=== PATIENT | female | born 2000 | race Caucasian/White ===

== ENCOUNTER 2024-11-06 13:31 | Inpatient (IN) | payer OTHER ==
[~2024-11-06 13:31] MED LIST: Bupivacaine 0.25% HCL 30 ML VIAL ONE
[2024-11-06 21:29] VITALS: BMI 24.9
[2024-11-06 22:22] LABS: Hemoglobin 9.8 g/dL (12.0-15.5); Mean Corpuscular HGB CONC 30.6 g/dL (32.0-36.0); Mean Corpuscular Hemoglobin 24.4 pg (27.0-33.0); Mean Corpuscular Volume 79.8 fL (81.6-98.3); Mean Platelet Volume 9.6 fL (7.4-10.4); Platelet Count 319 10x3/uL (150-450); Red Blood Cell (RBC) Count 4.01 10x6/uL (3.90-5.03); White Blood Cell (WBC) Count 12.33 10x3/uL (3.5-10.5)
[2024-11-06] MEDS ORDERED: fentaNYL 50 mcg/mL 1 mL Vial SLOW IVP PRN (22:30)
[2024-11-06] MEDS ORDERED: hydrALAZINE 20 MG/ML VIAL SLOW IVP PRN (22:30)
[2024-11-06] MEDS ORDERED: Lidocaine 1% (PF) 30 ML VIAL SC PRN (22:30)
[2024-11-06] MEDS ORDERED: Oxytocin 30 units/NS 500 ML 500 ML IV SCH ×2 (22:30)
[2024-11-06] MEDS ORDERED: Promethazine HCl 25 MG/ML VIAL IM PRN (22:30)
[2024-11-06] MEDS ORDERED: Acetaminophen 500 MG TAB PO PRN (22:30)
[2024-11-06 22:56] LABS: Syphilis Antibody Nonreactive (Nonreactive); Syphilis Antibody Index 0.06 S/CO (<1.00 Non-Reactive)
[2024-11-06 22:57] LABS: Hep B Surf Ag - L&D Non-Reactive S/CO (NonReactive)
[2024-11-06] MEDS: Misoprostol 100 MCG TAB VAG SCH (22:58)
[2024-11-07] MEDS: fentaNYL/Ropivacaine Epidural 100 ML ONE (03:33)
[2024-11-07] MEDS: Penicillin G Potassium 5 MILL.UNITS in Sodium Chloride 0.9% 100 ML IVPB SCH (03:33)
[2024-11-07] MEDS ORDERED: Moisturizing Cream (Eucerin) 113 GM JAR TOP PRN (03:57)
[2024-11-07] MEDS ORDERED: Naloxone HCl 0.4 mg/ml Vial IVP PRN ×2 (03:57)
[2024-11-07] MEDS ORDERED: Ondansetron PF 4 MG/2 ML Vial IVP PRN (03:57)
[2024-11-07] MEDS ORDERED: Promethazine HCl 25 MG/ML VIAL IM PRN (03:57)
[2024-11-07] MEDS ORDERED: Lactated Ringer's 500 ML IV PRN (03:57)
[2024-11-07] MEDS ORDERED: diphenhydrAMINE 50 MG/ML VIAL IVP PRN (03:57)
[2024-11-07] MEDS ORDERED: Communication Order-Pharmacy FS SCH (04:00)
[2024-11-07] MEDS: ePHEDrine Sulfate 50 MG/10 ML VIAL SLOW IVP PRN (05:03)
[2024-11-07] MEDS: Ondansetron PF 4 MG/2 ML Vial IVP PRN (05:10)
[2024-11-07] MEDS: Penicillin G 2.5 MILL.units 2.5 MILL.UNITS in Premix 1 BAG IVPB SCH (07:52)
[2024-11-07] MEDS: Oxytocin 30 units/NS 500 ML 500 ML IV SCH (12:55)
[2024-11-07] MEDS: fentaNYL 2 mcg/Ropivacaine 0.2% Epidural 100 ML CADD EPIDURAL SCH (13:52)
[2024-11-07] MEDS ORDERED: hydrALAZINE 20 MG/ML VIAL SLOW IVP PRN (15:26)
[2024-11-07] MEDS ORDERED: Boostrix 0.5 ML (Tdap) VIAL (>/=7 yrs of age) IM ONE (15:26)
[2024-11-07] MEDS ORDERED: Milk Of Magnesia 30 ML UDCUP PO PRN (15:26)
[2024-11-07] MEDS ORDERED: Bisacodyl 10 MG SUPP PR PRN (15:26)
[2024-11-07] MEDS: Lactated Ringer's 1,000 ML IV SCH (17:52)
[2024-11-07] MEDS: Penicillin G Potassium 5 MILL.UNITS VIAL ONE (17:53)
[2024-11-07] MEDS: Erythromycin Base 0.5% Oint 1 GM TUBE ONE (17:54)
[2024-11-07] MEDS: Phytonadione Neonatal 1 MG/0.5 ML AMP ONE (17:54)
[2024-11-07] MEDS: Ferrous Sulfate 325 MG TAB PO SCH (17:55)
[2024-11-07] MEDS: Acetaminophen 325 MG TAB PO PRN (18:17)
[2024-11-07] MEDS: Docusate 100 MG CAP PO SCH (21:44)
[2024-11-08] MEDS ORDERED: Benzocaine-Menthol 82.5 ML CAN TOP PRN (09:04)
[2024-11-08 11:24] VITALS: BP 108/75; TEMP 98.1
== END 2024-11-08 17:45 | disposition home or self-care (01) | DRG 807 ==
LOC: CSHLD 20:30 → CSHPP 11-07 17:40
PROVIDERS: ADMIT Obstetrics & Gynecology; ATTEND Obstetrics & Gynecology
PROC: 10E0XZZ Delivery of Products of Conception, External Approach (ICD-10-PCS; principal; 2024-11-07)
PROC: 10907ZC Drainage of Amniotic Fluid, Therapeutic from Products of Conception, Via Natural or Artificial Opening (ICD-10-PCS; 2024-11-07)
PROC: 0HQ9XZZ Repair Perineum Skin, External Approach (ICD-10-PCS; 2024-11-07)
DX: O13.4 Gestational [pregnancy-induced] hypertension without significant proteinuria, complicating childbirth (principal); Z37.0 Single live birth; Z3A.38 38 weeks gestation of pregnancy; O99.824 Streptococcus B carrier state complicating childbirth; O70.0 First degree perineal laceration during delivery
CPT/HCPCS: 85027; 86780; 86850; 86900; 86901; 87340; J0665; J2405; J2540; J2590